=== PATIENT | female | born 1965 | race Two or more races ===

== ENCOUNTER 2019-11-05 15:59 | Inpatient (IN) | payer OTHER ==
[~2019-11-05] VITALS: Ht 162.6 cm; Wt 90.7 kg
[2019-12-05] MEDS ORDERED: SYNTHROID125 MCG PO (16:12)
== END 2019-12-13 18:50 | DRG 470 ==
LOC: SURG 12-05 14:00 → SURH 12-11 05:00 → O/R 12-11 05:00 → SURH 12-11 11:36
PROVIDERS: ADMIT Orthopaedic Surgery
PROC: 4A19X1Z Monitoring of Respiratory Capacity, External Approach (ICD-10-PCS; 2019-12-11)
PROC: 0SRC0J9 Replacement of Right Knee Joint with Synthetic Substitute, Cemented, Open Approach (ICD-10-PCS; principal; 2019-12-11 14:00)
DX: M17.11 Unilateral primary osteoarthritis, right knee (principal); E03.9 Hypothyroidism, unspecified